=== PATIENT | male | born 1935 | race Caucasian/White ===

== ENCOUNTER 2016-12-21 10:49 | Emergency (ER) | payer MEDICARE ==
[~2016-12-21] VITALS: Ht 180.3 cm; Wt 102.1 kg
[~2016-12-21 10:49] MED LIST: COREG3.125 MG PO; COUMADIN7.5 MG PO; CRESTOR10 MG PO; NEURONTIN300 MG PO; PROTONIX40 MG PO; SINEMET CR 50-21 TAB PO; ZYLOPRIM100 MG PO
== END 2016-12-21 12:14 | disposition short-term general hospital (02) ==
LOC: ER 10:49
DX: B34.9 Viral infection, unspecified (principal); Z79.899 Other long term (current) drug therapy; Z88.8 Allergy status to other drugs, medicaments and biological substances
CPT/HCPCS: J1885

== ENCOUNTER → 2017-02-25 | Outpatient (CLI) | payer MEDICARE | END | disposition short-term general hospital (02) | LOC: CLNEUR 10:00 | DX: G20 Parkinson's disease (principal) ==